=== PATIENT | female | born 1940 | race Caucasian/White ===

== ENCOUNTER 2020-08-15 20:18 | Emergency (ER) | payer MEDICARE, OTHER ==
--- NOTE | 2020-08-15 20:59 | EDM.PDOC ---
ED HPI GENERAL MEDICAL PROBLEM - General Chief Complaint: Abdominal Pain Time Seen by Provider: 08/15/20 20:55 Source of Information: Reports: Patient History Limitations: Reports: No Limitations - History of Present Illness INITIAL COMMENTS - FREE TEXT/NARRATIVE: 79 yo female who has dementia.Brought in by due to "not feeling good". She is a poor historian.Her reports that t she had 'abdominal pain". He gave her Maalox,which seems better now. No fever,chest pain ,constipation or urinary symptoms - Related Data Allergies Allergy/AdvReac Type Severity Reaction Status Date / Time No Known Allergies Allergy Verified 06/02/15 21:06 Home Meds: Home Meds Losartan/Hydrochlorothiazide [Losartan-HCTZ 100-25 MG] 1 each PO DAILY 08/15/20 [History] QUEtiapine Fumarate [Quetiapine Fumarate ER] 50 mg PO BEDTIME 08/15/20 [History] QUEtiapine [SEROquel] 25 mg PO BID 08/15/20 [History] QUEtiapine [SEROquel] 50 mg PO BID 08/15/20 [History] hydroCHLOROthiazide [Hydrochlorothiazide] 25 mg PO DAILY 08/15/20 [History] ED ROS GENERAL - Review of Systems Review Of Systems: Comprehensive ROS is negative, except as noted in HPI. ED EXAM, GI/ABD - Physical Exam Exam: See Below Exam Limited By: No Limitations General Appearance: Alert, WD/WN, No Apparent Distress, Anxious Eyes: Bilateral: Normal Appearance, EOMI Nose: Normal Inspection, Normal Mucosa, No Blood Throat/Mouth: Normal Inspection Head: Atraumatic Neck: Normal Inspection Respiratory/Chest: No Respiratory Distress Cardiovascular: Normal Peripheral Pulses Course - Vital Signs Last Recorded V/S: Last Vital Signs Temp 98.0 F 08/15/20 21:40 Pulse 66 08/15/20 21:40 Resp 17 08/15/20 21:40 BP 126/69 08/15/20 21:40 Pulse Ox 98 08/15/20 21:40 - Orders/Labs/Meds Orders: Active Orders 24 hr Category Date Time Status CULTURE URINE [RM] Stat Lab 08/15/20 21:05 Received Labs: Laboratory Tests 08/15/20 08/15/20 08/15/20 Range/Units 20:40 20:40 21:05 WBC 5.3 (3.0-10.3) x10-3/uL RBC 3.68 (3.60-5.20) x10(6)uL Hgb 10.7 L (11.4-15.5) g/dL Hct 33.4 L (34.2-48.2) % MCV 90.7 (76.7-100.5) fL MCH 29.1 (23.9-33.9) pg MCHC 32.1 (31.9-34.8) g/dL RDW 13.8 (12.3-16.5) % Plt Count 178 (151-488) x10(3)uL MPV 8.3 (7.1-12.4) fL Neut % (Auto) 56.8 (30.8-76.2) % Lymph % (Auto) 27.8 (18.4-52.1) % Story % (Auto) 10.1 (4.4-15.7) % Eos % (Auto) 4.3 (0.6-8.1) % Baso % (Auto) 1.0 (0.2-1.5) % Neut # (Auto) 3.0 (1.5-6.3) x10-3/uL Lymph # (Auto) 1.5 (1.0-4.4) x10-3/uL Story # (Auto) 0.5 (0.3-1.0) x10-3/uL Eos # (Auto) 0.2 (0.0-0.8) x10-3/uL Baso # (Auto) 0.1 (0.0-0.1) x10-3/uL Sodium 138 (135-145) mmol/L Potassium 4.0 (3.5-5.3) mmol/L Chloride 102 (100-110) mmol/L Carbon Dioxide 27 (21-32) mmol/L BUN 39 H (7-18) mg/dL Creatinine 1.7 H (0.55-1.02) mg/dL Est Cr Clr Drug Dosing TNP Estimated GFR (MDRD) 29 L (>60) BUN/Creatinine Ratio 22.9 H (9-20) Glucose 147 H (80-116) mg/dL Calcium 9.5 (8.6-10.2) mg/dL Total Bilirubin 0.3 (0.1-1.3) mg/dL AST 20 (5-25) IU/L ALT 30 (12-36) U/L Alkaline Phosphatase 82 (56-112) IU/L Total Protein 7.8 (6.0-8.0) g/dL Albumin 4.1 (3.2-4.6) g/dL Globulin 3.7 g/dL Albumin/Globulin Ratio 1.1 Amylase 71 (25-115) U/L Urine Color Yellow (YELLOW) Urine Appearance Clear (CLEAR) Urine pH 5.0 (5.0-6.5) Ur Specific Vale 1.020 (1.010-1.025) Urine Protein Negative (NEGATIVE) mg/dL Urine Glucose (UA) Normal (NORMAL) mg/dL Urine Ketones Negative (NEGATIVE) mg/dL Urine Occult Blood Negative (NEGATIVE) Urine Nitrite Negative (NEGATIVE) Urine Bilirubin Negative (NEGATIVE) Urine Urobilinogen Normal (NEGATIVE) mg/dL Ur Leukocyte Esterase Large H (NEGATIVE) Urine RBC 0-5 (0-5) Urine WBC 10-20 H (0-5) Ur Squamous Epith Cells Few H (NS,R,O) Urine Bacteria Moderate H (NS) Departure - Departure Time of Disposition: 07:05 Disposition: Home, Self-Care 01 Condition: Good Clinical Impression: Dementia, Feeling poorly - Discharge Information Instructions: Urinary Tract Infection, Adult, [id number] Referrals: Sharlene Argueta GETTER OPERATOR [Primary Care Provider] - Forms: ED Department Discharge Additional Instructions: please take Bactrim DS 1 tab twice a day for 3 days follow up with your primary care doctor as needed please drink enough water Sepsis Event Note (ED) - Focused Exam Vital Signs: Vital Signs Temp Pulse Resp BP Pulse Ox 08/15/20 21:40 98.0 F 66 17 126/69 98 08/15/20 20:18 98.0 F 74 18 158/76 H 100 - Problem List & Annotations (1) Feeling poorly SNOMED Code(s): 73281054 Code(s): R68.89 - OTHER GENERAL SYMPTOMS AND SIGNS Status: Acute (2) Dementia SNOMED Code(s): 15984958 Code(s): F03.90 - UNSPECIFIED DEMENTIA WITHOUT BEHAVIORAL DISTURBANCE Status: Acute Qualifiers: Dementia type: Alzheimer's (3) UTI (urinary tract infection) SNOMED Code(s): 89923918 Code(s): N39.0 - URINARY TRACT INFECTION, SITE NOT SPECIFIED Status: Acute Qualifiers: Urinary tract infection type: acute cystitis - Problem List Review Problem List Initiated/Reviewed/Updated: Yes - My Orders Last 24 Hours: My Active Orders 08/15/20 21:05 CULTURE URINE [RM] Stat - Assessment/Plan Last 24 Hours: My Active Orders 08/15/20 21:05 CULTURE URINE [RM] Stat Plan: UA MET CRITERIA FOR culture. She has minimal symptoms. I will treat her with Macrobid,and discharge.
[2020-08-15] MEDS ORDERED: Sulfamethoxazole/Trimethoprim 800-160 MG Tab PO ONE (21:29)
[2020-08-15 22:21] VITALS: BP 126/69; PULSE 66
--- NOTE | 2020-08-18 15:16 | PCM.SN.2 ---
- Free Text/Narrative Note: Patient was seen in the emergency department by Dr. Cary on 08/15/2020 and was diagnosed with UTI and placed on Bactrim DS. The patient's urine culture did come back for Streptococcus agalactiae, group B strep and sensitivities for Bactrim were not tested. I called the patient and was able to speak to the and he told me that the patient had been doing well and her symptoms seemed to have resolved. He is her caregiver. I told him to have her continue to take the Bactrim DS until all have been taken. I also urged him to follow-up with the patient's primary doctor this week for any concerns.
== END 2020-08-15 21:45 | disposition home or self-care (01) ==
LOC: FB.ED 20:18
DX: F03.90 Unspecified dementia, unspecified severity, without behavioral disturbance, psychotic disturbance, mood disturbance, and anxiety (principal); R69 Illness, unspecified; Z79.899 Other long term (current) drug therapy
CPT/HCPCS: 36415; 80053; 81001; 82150; 85025; 87086; 87088; 87186; 99284; A9270; 99283